=== PATIENT | female | born 1970 | race Caucasian/White ===

== ENCOUNTER 2017-06-21 14:49 | Inpatient (IN) | payer OTHER ==
[~2017-06-21] VITALS: Ht 162.6 cm; Wt 104.8 kg
[2017-06-21 14:56] VITALS: BP 141/98
[2017-06-21] MEDS ORDERED: TRAZODONE HCL100 MG PO (14:59)
[2017-06-21] MEDS ORDERED: NORVASC10 MG PO (14:59)
[2017-06-21] MEDS ORDERED: MOBIC15 MG PO (15:00)
[2017-06-21 15:30] LABS: ABSOLUTE BASOPHILS 0.1 thou/uL (0.0-0.2); ABSOLUTE EOSINOPHILS 0.2 thou/uL (0.0-0.7); ABSOLUTE LYMPHOCYTES 2.2 thou/uL (0.8-5.3); ABSOLUTE MONOCYTES 0.8 thou/uL (0.0-1.2); ABSOLUTE NEUTROPHILS 8.1 thou/uL (1.6-8.1); BASOPHILS 0.8 %; EOSINOPHILS 1.6 %; HEMATOCRIT 45.4 % (37.0-47.0); HEMOGLOBIN 15.4 gm/dL (12.0-15.0); LYMPHOCYTES 19.7 %; MCH 30.5 pg (26.0-34.0); MCHC 33.9 g/dL (28.0-37.0); MONOCYTES 6.7 %; NUCLEATED RBCS 0 /100WBC; PLATELET COUNT* 341 thou/uL (150-400); POLYS 71.2 %; RBC 5.04 mil/uL (4.20-5.00); WBC 11.4 thou/uL (4.0-11.0)
[2017-06-21 15:37] LABS: CREATININE 0.8 mg/dL (0.6-1.3); POTASSIUM 3.7 mmol/L (3.5-5.1)
[2017-06-21 15:41] LABS: ALBUMIN 3.5 g/dL (3.4-5.0); TOTAL BILIRUBIN 0.2 mg/dL (<0.1-1.0); TOTAL PROTEIN 7.5 g/dL (6.4-8.2)
[2017-06-21 16:54] LABS: URINE BILIRUBIN NEGATIVE (Negative); URINE BLOOD NEGATIVE (Negative); URINE CLARITY CLEAR; URINE COLOR YELLOW; URINE GLUCOSE-RANDOM NEGATIVE (Negative); URINE KETONES NEGATIVE (Negative); URINE LEUKOCYTES-REFLEX NEGATIVE (Negative); URINE NITRITE-REFLEX NEGATIVE (Negative); URINE PROTEIN NEGATIVE (Negative); URINE SPECIFIC GRAVITY 1.025 (1.005-1.030); URINE UROBILINOGEN 0.2 E.U./dl (0.2-1.0)
[2017-06-21 20:48] VITALS: BP 119/73
[2017-06-21 21:00] VITALS: BP 124/82
[2017-06-22 00:20] VITALS: BP 131/91
[2017-06-22 04:51] LABS: CALCIUM 8.2 mg/dL (8.5-10.1); CREATININE 0.6 mg/dL (0.6-1.3); POTASSIUM 4.3 mmol/L (3.5-5.1)
[2017-06-22 04:55] LABS: ALBUMIN 3.1 g/dL (3.4-5.0); MAGNESIUM 1.8 mg/dL (1.8-2.4); TOTAL BILIRUBIN 0.4 mg/dL (<0.1-1.0)
[2017-06-22 04:56] LABS: HEMATOCRIT 41.7 % (37.0-47.0); HEMOGLOBIN 14.4 gm/dL (12.0-15.0); MCH 30.8 pg (26.0-34.0); MCHC 34.4 g/dL (28.0-37.0); MCV 89.5 fL (80.0-100.0); MPV 7.2 fl. (7.2-11.1); RBC 4.67 mil/uL (4.20-5.00); RDW-CV 14.3 % (10.5-14.5)
[2017-06-22 07:50] VITALS: BP 120/78
--- NOTE | 2017-06-22 09:51 | EKG ---
[place] [address] ELECTROCARDIOGRAM REPORT Name: KARLA WOODARD Room: [address] ADM IN [facility]#: [id number] Admission: 06/21/17 Attend Phys: Taran Hernandez MD Discharge: Date of : 68 Report #: [id number] THIS REPORT FOR: //name// [facility] ED Test Date: 2017-06-21 Test Time: 16:33:02 Pat Name: KARLA WOODARD Department: Room: [facility] Gender: F Supervisor Building Maintenance: : 1970 Requested By: Saul Martinez Order Number: [id number] MD: Jose Miguel Moore Measurements Intervals [place] Rate: 84 P: 59 W[place]: 163 QRS: 69 QRSD: 99 T: -3 QT: 377 QTc: 446 Interpretive Statements Sinus rhythm Probable left atrial enlargement Borderline T abnormalities, anterior leads No previous ECG available for comparison Electronically Signed On 06-22-2017 9:51:29 CDT by Jose Miguel Moore [email or web address] <ELECTRONICALLY SIGNED> By: Jose Miguel Moore MD, [facility] 06/22/17 [id number] Jose Miguel Moore MD, FAC /EPI
[2017-06-22 16:14] VITALS: BP 105/72
[2017-06-22 21:28] VITALS: BP 121/82
[2017-06-23 09:59] VITALS: BP 131/85
[2017-06-23] MEDS ORDERED: FLAGYL500 M1 PO (14:13)
[2017-06-23] MEDS ORDERED: CIPRO500 MG PO (14:13)
[2017-06-23] MEDS ORDERED: PERCOCET PO (14:14)
[2017-06-23 14:17] VITALS: BP 131/85
== END 2017-06-23 17:12 | disposition home or self-care (01) | DRG 872 ==
LOC: M.ERS 14:49 → M.TBA-ER 19:30 → M.3W 19:30
PROVIDERS: Nurse Practitioner Psychiatric/Mental Health; ADMIT Internal Medicine
DX: A41.9 Sepsis, unspecified organism (principal); K57.32 Diverticulitis of large intestine without perforation or abscess without bleeding; I10 Essential (primary) hypertension; F17.200 Nicotine dependence, unspecified, uncomplicated; M19.90 Unspecified osteoarthritis, unspecified site; Z90.710 Acquired absence of both cervix and uterus; Z90.5 Acquired absence of kidney; Z85.528 Personal history of other malignant neoplasm of kidney; Z88.1 Allergy status to other antibiotic agents